=== PATIENT | male | born 1995 | race Caucasian/White ===

== ENCOUNTER 2017-10-08 08:48 | Inpatient (IN) | payer SELFPAY ==
[~2017-10-08] VITALS: Ht 188 cm; Wt 103.2 kg
[2017-10-08] VITALS (17 sets, daily range): BP systolic 113–176; BP diastolic 68–95; PULSE 74–137; RESP 14–28; TEMP 96.5–98.5; O2SAT 97–100
[~2017-10-08 08:48] MED LIST: HYDR-3580 PO
[2017-10-08] MEDS: SODIUM CHLOR 0.9% 1000 ML INJ 1,000 ML IV SCH ×2 (09:27→10:06)
[2017-10-08] MEDS ORDERED: SODIUM CHLOR 0.9% 1000 ML INJ 1,000 ML IV ONE (09:30)
--- NOTE | 2017-10-08 09:31 | RADRPT ---
EXAM DATE: 10/08/2017 9:27 AM EDT AGE/SEX: 22 years / Male INDICATIONS: Short of breath CLINICAL DATA: This is the patient's initial encounter. Patient reports that signs and symptoms have been present for 2 weeks and indicates a pain score of 0/10. MEDICAL/SURGICAL HISTORY: None. None. COMPARISON: No prior exams available for comparison. FINDINGS: A single AP view of the chest demonstrates the lungs to be symmetrically aerated without evidence of mass, infiltrate or effusion. The cardiomediastinal contours are unremarkable. Osseous structures a re intact. CONCLUSION: No acute disease Electronically signed by: Shawn Reyes MD 10/08/2017 9:29 AM EDT
[2017-10-08 09:33] LABS: AUTOMATED NEUTROPHIL # 8.2 TH/MM3 (1.8-7.7); BASOPHIL % 0.3 % (0.0-2.0); EOSINOPHIL % 0.1 % (0.0-4.0); HEMATOCRIT 45.5 % (39.0-51.0); HEMOGLOBIN 15.3 GM/DL (13.0-17.0); LYMPH % 8.3 % (9.0-44.0); LYMPHOCYTE # 0.8 TH/MM3 (1.0-4.8); MEAN CELL VOLUME 79.6 FL (80.0-100.0); MEAN CORPUSCULAR HEMOGLOBIN 26.8 PG (27.0-34.0); MEAN CORPUSCULAR HGB CONC 33.6 % (32.0-36.0); MEAN PLATELET VOLUME 12.3 FL (7.0-11.0); MONO % 6.3 % (0.0-8.0); MONOCYTE # 0.6 TH/MM3 (0-0.9); PLATELET COUNT 163 TH/MM3 (150-450); RED BLOOD COUNT 5.72 MIL/MM3 (4.50-5.90); WHITE BLOOD COUNT 9.6 TH/MM3 (4.0-11.0)
--- NOTE | 2017-10-08 09:36 | PD ---
HPI Chief Complaint: Dizziness Time Seen by Provider: 08:57 Travel History International Travel<30 days: No Contact w/Intl Traveler<30days: No Traveled to known affect area: No History of Present Illness HPI Patient is a 22 year old male who comes in complaining of lightheadedness. He says this has been coming and going for the past two weeks. He says it started with some left sided abdominal pain, which went away, then the dizziness started. He says he was at work today and he got very dizzy and vomited twice, so he came in to the hospital. He denies any headaches, blurred vision, fever or chills. He says this has never happened before. Nothing seems to improve or worsen his symptoms. The dizziness comes on randomly and is not associated with position. He says he thinks he is dehydrated because he is thirsty all the time and has increased how much he is drinking. Severity is mild to moderate. PFSH Past Medical History Medical History: Denies Significant Hx Autoimmune Disease: No Anxiety: No Depression: No Cardiovascular Problems: No Neurologic: No Psychiatric: No Respiratory: No Influenza Vaccination: No Past Surgical History Appendectomy: Yes Other Surgery: No Social History Alcohol Use: Yes (rarely) Tobacco Use: No Substance Use: No Allergies-Medications (Allergen,Severity, Reaction): Coded Allergies: No Known Allergies (Unverified Allergy, Unknown, 10/08/17) Reported Meds & Prescriptions Reported Meds & Active Scripts Active Review of Systems Except as stated in HPI: all other systems reviewed are Neg General / Constitutional: No: Fever, Chills Eyes: No: Blurred Vision HENT: Positive: Lightheadedness, No: Headaches Cardiovascular: No: Chest Pain or Discomfort Respiratory: No: Shortness of Breath Gastrointestinal: Positive: Nausea, Vomiting Musculoskeletal: No: Myalgias, Edema Skin: No Rash, No Change in Pigmentation Neurologic: No: Weakness, Dizziness Endocrine: Positive: Polyuria, Polydipsia Physical Exam Narrative GENERAL: Awake and alert, in no acute distress. Smells of ketones. SKIN: Focused skin assessment warm/dry. No wounds or signs of infection. HEAD: Atraumatic. Normocephalic. EYES: Pupils equal and round. No scleral icterus. EOMI. ENT: Mucous membranes pink and moist. NECK: Trachea midline. No JVD. CARDIOVASCULAR: Regular rate and rhythm. No murmur appreciated. RESPIRATORY: No accessory muscle use. Clear to auscultation. Breath sounds equal bilaterally. GASTROINTESTINAL: Abdomen soft, non-tender, nondistended. MUSCULOSKELETAL: No obvious deformities. No clubbing. No cyanosis. No edema. NEUROLOGICAL: Awake and alert. No obvious cranial nerve deficits. Motor grossly within normal limits. Normal speech. PSYCHIATRIC: Appropriate mood and affect; insight and judgment normal. Data Data Last Documented VS Vital Signs Date Time Temp Pulse Resp B/P (MAP) Pulse Ox O2 Delivery O2 Flow Rate FiO2 10/08/17 10:39 95 18 128/80 (96) 98 Room Air 10/08/17 08:50 97.5 Orders Orders Electrocardiogram (10/08/17 09:06) Troponin I (10/08/17 09:06) Complete Blood Count With Diff (10/08/17 09:06) Beta Hydroxybutyrate (Acetone) (10/08/17 09:06) Sodium Chlor 0.9% 1000 Ml Inj (Ns 1000 M (10/08/17 09:06) Urinalysis - C+S If Indicated (10/08/17 09:06) Chest, Single Ap (10/08/17 ) Blood Gas Venous (Vbg) (10/08/17 09:06) Iv Access Insert/Monitor (10/08/17 09:06) Ecg Monitoring (10/08/17 09:06) Basic Metabolic Panel (Bmp) (10/08/17 09:06) Hepatic Functional Panel (10/08/17 09:06) Sodium Chlor 0.9% 1000 Ml Inj (Ns 1000 M (10/08/17 09:30) Sodium Chlor 0.9% 1000 Ml Inj (Ns 1000 M (10/08/17 10:31) Dext 5%-Nacl 0.9% 1000 Ml Inj (D5w-Ns 10 (10/08/17 10:31) Insulin Human Regular Inj (Novolin R Inj (10/08/17 10:45) Insulin Regular (Iv Infusion) (Novolin R (10/08/17 10:45) Potassium Chlor 40 Meq Premix (Kcl 40 Me (10/08/17 10:45) Potassium Chlor 40 Meq Premix (Kcl 40 Me (10/08/17 10:45) Potassium Chlor 20 Meq Premix (Kcl 20 Me (10/08/17 10:45) Potassium Chlor 20 Meq Premix (Kcl 20 Me (10/08/17 10:45) Potassium Chlor 20 Meq Premix (Kcl 20 Me (10/08/17 10:45) Potassium Chlor 20 Meq Premix (Kcl 20 Me (10/08/17 10:45) Potassium Chlor 20 Meq Premix (Kcl 20 Me (10/08/17 10:45) Potassium Chlor 20 Meq Premix (Kcl 20 Me (10/08/17 10:45) Sodium Bicarbonate 8.4% Inj (Sodium Bica (10/08/17 10:45) Sodium Bicarbonate 8.4% Inj (Sodium Bica (10/08/17 10:45) Sodium Phosphate Inj (Sodium Phosphate I (10/08/17 10:45) Sodium Chlor 0.9% 1000 Ml Inj (Ns 1000 M (10/08/17 10:39) Dext 5%-Nacl 0.9% 1000 Ml Inj (D5w-Ns 10 (10/08/17 10:39) Insulin Human Regular Inj (Novolin R Inj (10/08/17 10:45) Insulin Regular (Iv Infusion) (Novolin R (10/08/17 10:45) Potassium Chlor 40 Meq Premix (Kcl 40 Me (10/08/17 10:45) Potassium Chlor 40 Meq Premix (Kcl 40 Me (10/08/17 10:45) Potassium Chlor 20 Meq Premix (Kcl 20 Me (10/08/17 10:45) Potassium Chlor 20 Meq Premix (Kcl 20 Me (10/08/17 10:45) Potassium Chlor 20 Meq Premix (Kcl 20 Me (10/08/17 10:45) Potassium Chlor 20 Meq Premix (Kcl 20 Me (10/08/17 10:45) Potassium Chlor 20 Meq Premix (Kcl 20 Me (10/08/17 10:45) Potassium Chlor 20 Meq Premix (Kcl 20 Me (10/08/17 10:45) Sodium Bicarbonate 8.4% Inj (Sodium Bica (10/08/17 10:45) Sodium Bicarbonate 8.4% Inj (Sodium Bica (10/08/17 10:45) Sodium Phosphate Inj (Sodium Phosphate I (10/08/17 10:45) Basic Metabolic Panel (Bmp) (10/08/17 15:39) Basic Metabolic Panel (Bmp) (10/08/17 21:39) Basic Metabolic Panel (Bmp) (10/09/17 03:39) Basic Metabolic Panel (Bmp) (10/09/17 09:39) Magnesium (Mg) (10/08/17 15:39) Magnesium (Mg) (10/08/17 21:39) Magnesium (Mg) (10/09/17 03:39) Magnesium (Mg) (10/09/17 09:39) Phosphorus (Po4) (10/08/17 15:39) Phosphorus (Po4) (10/08/17 21:39) Phosphorus (Po4) (10/09/17 03:39) Phosphorus (Po4) (10/09/17 09:39) Beta Hydroxybutyrate (Acetone) (10/08/17 21:39) Beta Hydroxybutyrate (Acetone) (10/09/17 09:39) Admit Order (Ed Use Only) (10/08/17 ) Labs Laboratory Tests Test 10/08/17 09:15 10/08/17 09:20 White Blood Count 9.6 TH/MM3 Red Blood Count 5.72 MIL/MM3 Hemoglobin 15.3 GM/DL Hematocrit 45.5 % Mean Corpuscular Volume 79.6 FL Mean Corpuscular Hemoglobin 26.8 PG Mean Corpuscular Hemoglobin Concent 33.6 % Red Cell Distribution Width 13.0 % Platelet Count 163 TH/MM3 Mean Platelet Volume 12.3 FL Neutrophils (%) (Auto) 85.0 % Lymphocytes (%) (Auto) 8.3 % Monocytes (%) (Auto) 6.3 % Eosinophils (%) (Auto) 0.1 % Basophils (%) (Auto) 0.3 % Neutrophils # (Auto) 8.2 TH/MM3 Lymphocytes # (Auto) 0.8 TH/MM3 Monocytes # (Auto) 0.6 TH/MM3 Eosinophils # (Auto) 0.0 TH/MM3 Basophils # (Auto) 0.0 TH/MM3 CBC Comment DIFF FINAL Differential Comment Blood Urea Nitrogen 12 MG/DL Creatinine 1.00 MG/DL Random Glucose 636 MG/DL Total Protein 8.1 GM/DL Albumin 3.8 GM/DL Calcium Level 9.2 MG/DL Alkaline Phosphatase 184 U/L Aspartate Amino Transf (AST/SGOT) 10 U/L Alanine Aminotransferase (ALT/SGPT) 26 U/L Total Bilirubin 1.1 MG/DL Direct Bilirubin 0.2 MG/DL Sodium Level 126 MEQ/L Potassium Level 4.0 MEQ/L Chloride Level 94 MEQ/L Carbon Dioxide Level 11.1 MEQ/L Anion Gap 21 MEQ/L Estimat Glomerular Filtration Rate 94 ML/MIN Indirect Bilirubin 0.9 MG/DL Troponin I LESS THAN 0.02 NG/ML B-Hydroxybutyrate 7.35 MMOL/L Urine Color YELLOW Urine Turbidity CLEAR Urine pH 5.0 Urine Specific [place] 1.010 Urine Protein NEG mg/dL Urine Glucose (UA) 1000 OR GREATER mg/dL Urine Ketones 80 OR GREATER mg/dL Urine Occult Blood NEG Urine Nitrite NEG Urine Bilirubin NEG Urine Urobilinogen 0.2 MG/DL Urine Leukocyte Esterase NEG Urine WBC 0-2 /hpf Microscopic Urinalysis Comment CULT NOT INDICATED Blood Gas Puncture Site AC Blood Gas Patient Temperature 98.6 Venous Blood pH 7.30 Venous Blood Partial Pressure CO2 22 mmHg Venous Blood Partial Pressure O2 52 mmHg Venous Blood HCO3 10 mmol/L Venous Blood Oxygen Saturation 83 % Venous Blood Oxygen Content 17.4 Vol % Venous Blood Base Excess -15.0 mmol/L Oxygen Delivery Device ROOM AIR Blood Gas Inspired Oxygen 21 % MDM Medical Decision Making Medical Screen Exam Complete: Yes Emergency Medical Condition: Yes Medical Record Reviewed: Yes Interpretation(s) ECG shows sinus tachycardia at 111 Differential Diagnosis Dehydration vs DKA vs new onset diabetes vs electrolyte abnormalities Narrative Course Patient is a 22 year old male who comes in complaining of dizziness. Smell of ketones is in the room. IV established, labs sent. Labs show an anion gap of 21 , pH of 7.30, glucose of 636. Given IVF, IVP insulin and started on an insulin drip. Patient informed of the results. Admitted for further management. Diagnosis Primary Impression: Diabetic ketoacidosis Qualified Codes: E13.10 - Other specified diabetes mellitus with ketoacidosis without coma Admitting Information Admitting Physician Requests: Admit Scripts Parenteral Therapy Supplies (Sharpsafety Sharps Contai) 1 Mis Mis EA .XX DIRECTED, #1 0 Refills Prov: Obinna Esquivel 10/10/17 Glucocom Test Strips (Glucocom Test Strips) 1 Elsi Elsi EA .XX DIRECTED for Blood Sugar Management, #1 Prov: Obinna Esquivel 10/10/17 Lancets (Lancets) 1 Mis Mis EA .XX DIRECTED for Blood Sugar Management, #1 0 Refills Prov: Obinna Esquivel 10/10/17 Insulin Syringe/U-100/31G X 5/16" 1 ml (Insulin Syringe/U-100/31G X 5/16" 1 ml) 31 Gauge X 5/16" Mis EA .XX DIRECTED for Blood Sugar Management, #1 0 Refills Prov: Obinna Esquivel 10/10/17 Blood Glucose Monitoring W/Device (Glucocom Blood Glucose Mo W/Device) 1 Kit Kit KIT .XX DIRECTED for Blood Sugar Management, #1 Prov: Obinna Esquivel 10/10/17 Insulin Detemir Inj (Levemir Inj) 1,000 unit/ 10 ML Vial 10 UNITS SQ BID for Blood Sugar Management for 30 Days, INJECTION Do not mix with any other Insulin. Prov: Obinna Esquivel 10/10/17 Insulin Aspart Inj (Novolog Inj) 100 Unit/Ml Inj 1 UNITS SQ ACHS SLIDING SCALE for Blood Sugar Management, #1 BOTTLE Prov: Obinna Esquivel 10/10/17 Aurelia Yun MD Oct 08, 2017 09:36
[2017-10-08 09:44] LABS: BILIRUBIN, URINE NEG (NEG); BLOOD, URINE NEG (NEG); GLUCOSE,URINE 1000 OR GREATER mg/dL (NEG); KETONE, URINE 80 OR GREATER mg/dL (NEG); NITRITE,URINE NEG (NEG); URINE COLOR YELLOW (YELLW/STRAW); URINE LEUKOCYTE ESTERASE NEG (NEG)
[2017-10-08 09:56] LABS: WBC, URINE 0-2 /hpf (0-5)
[2017-10-08 09:59] LABS: CALCIUM 9.2 MG/DL (8.5-10.1)
[2017-10-08 10:00] LABS: ALBUMIN 3.8 GM/DL (3.4-5.0); BICARBONATE 11.1 MEQ/L (21.0-32.0)
[2017-10-08 10:03] LABS: ALT (GPT) 26 U/L (12-78); AST (GOT) 10 U/L (15-37); CHLORIDE 94 MEQ/L (98-107); DIRECT BILIRUBIN ADULT 0.2 MG/DL (0.0-0.2); GLOMERULAR FILTRATION RATE 94 ML/MIN (>89); SODIUM (NA) 126 MEQ/L (136-145)
[2017-10-08 10:04] LABS: INDIRECT BILIRUBIN 0.9 MG/DL (0.0-0.8); TOTAL BILIRUBIN ADULT 1.1 MG/DL (0.2-1.0); TOTAL PROTEIN 8.1 GM/DL (6.4-8.2)
[2017-10-08 10:05] LABS: ALKALINE PHOSPHATASE 184 U/L (45-117)
[2017-10-08 10:15] LABS: BLOOD UREA NITROGEN 12 MG/DL (7-18); TROPONIN I LESS THAN 0.02 NG/ML (0.02-0.05)
[2017-10-08 10:31] LABS: GLUCOSE,RANDOM 636 MG/DL (74-106)
[2017-10-08] MEDS ORDERED: DEXT 5%-NACL 0.9% 1000 ML INJ 1,000 ML IV SCH (10:31)
[2017-10-08] MEDS ORDERED: SODIUM CHLOR 0.9% 1000 ML INJ 1,000 ML IV SCH ×2 (10:31→10:39)
[2017-10-08] MEDS ORDERED: POTASSIUM CHLOR 40 MEQ PREMIX 100 ML IV PRN ×4 (10:45)
[2017-10-08] MEDS ORDERED: INSULIN HUMAN REGULAR 1,000 UNITS/10 ML VIAL IV PUSH ONE ×2 (10:45)
[2017-10-08] MEDS ORDERED: POTASSIUM CHLOR 20 MEQ PREMIX 100 ML IV PRN ×11 (10:45)
[2017-10-08] MEDS ORDERED: INSULIN REGULAR (IV INFUSION) 100 UNITS in SODIUM CHLORIDE 0.9% INJ 99 ML IV PRN ×4 (10:45)
[2017-10-08] MEDS ORDERED: SODIUM BICARBONATE 8.4% SOLN 50 MEQ/50 ML VIAL IV PUSH PRN ×4 (10:45)
[2017-10-08] MEDS ORDERED: SODIUM PHOSPHATE INJ 15 MMOL in SODIUM CHLORIDE 0.9% INJ 100 ML IV PRN ×4 (10:45)
[2017-10-08] MEDS ORDERED: SODIUM CHLORIDE 0.9% FLUSH 10 ML FLUSH IV FLUSH PRN (11:15)
[2017-10-08] MEDS ORDERED: NALOXONE HCL 0.4 MG/ML AMP IV PUSH PRN (11:15)
[2017-10-08] MEDS ORDERED: ACETAMINOPHEN 325 MG TAB PO PRN (11:15)
[2017-10-08] MEDS ORDERED: LACTULOSE SYRUP 20 GM/30 ML CUP PO PRN (11:15)
[2017-10-08] MEDS ORDERED: MAGNESIUM HYDROXIDE SUSP 30 ML CUP PO PRN (11:15)
[2017-10-08] MEDS ORDERED: SENNOSIDES 8.6 MG TAB PO PRN (11:15)
[2017-10-08] MEDS ORDERED: BISACODYL 10 MG SUPP RECTAL PRN (11:15)
[2017-10-08] MEDS: POTASSIUM CHLOR 20 MEQ PREMIX 100 ML IV PRN ×2 (11:32→13:15)
--- NOTE | 2017-10-08 12:27 | EKG ---
Date Performed: 10/08/2017 Time Performed: 09:17:48 PTAGE: 22 years EKG: SINUS TACHYCARDIA EARLY REPOLARIZATION ABNORMAL RHYTHM ECG NO PREVIOUS TRACING DOCTOR: Jed Wynn Interpretating Date/Time 10/08/2017 12:25:42
[2017-10-08] MEDS: DEXT 5%-NACL 0.9% 1000 ML INJ 1,000 ML IV SCH ×2 (13:11→15:39)
[2017-10-08] MEDS: ENOXAPARIN SODIUM 40 MG/0.4 ML SYRINGE SQ SCH (13:14)
--- NOTE | 2017-10-08 14:23 | HHI.HP ---
HPI Service [facility] Primary Care Physician No Primary Care Physician Admission Diagnosis DKA Diagnoses: (1) Diabetic ketoacidosis Diagnosis: Principal (2) Diabetes mellitus, new onset Diagnosis: Principal Chief Complaint: Dizziness Travel History International Travel<30 Days: No Contact w/Intl Traveler <30 Da: No Traveled to Known Affected Are: No History of Present Illness 22-year-old male with no chronic medical illnesses who presented to the ER today because of acute onset of dizziness. Patient states that he was in normal state of health and at approximately 730 this morning he woke up with some lightheadedness and dizziness. He was doing okay but then all of a sudden the dizziness became more severe so he came to emergency department for evaluation. Patient had workup done to find that he was in diabetic ketoacidosis with glucose 636, anion gap 21, pH 7.3 base excess of -15. Emergency room physician requested the patient be admitted for further evaluation and management. Upon further evaluation of the patient he denies any other symptomatology to include polydipsia, polyphagia, polyuria. He denies any weight changes or change in appetite. Review of Systems Constitutional: COMPLAINS OF: Dizziness Except as stated in HPI: all other systems reviewed are Neg Past Family Social History Past Medical History No chronic medical illnesses Past Surgical History Appendectomy Reported Medications No home medication Allergies: Coded Allergies: No Known Allergies (Unverified Allergy, Unknown, 10/08/17) Family History Family history reviewed and unremarkable for any heart disease, diabetes, cancer , seizure, stroke Social History Patient denies any tobacco, alcohol or illicit drug Physical Exam Vital Signs Vital Signs Date Time Temp Pulse Resp B/P (MAP) Pulse Ox O2 Delivery O2 Flow Rate FiO2 10/08/17 12:10 10/08/17 12:00 98.5 111 18 131/80 (97) 98 10/08/17 11:56 94 18 130/81 (97) 98 Room Air 10/08/17 10:39 95 18 128/80 (96) 98 Room Air 10/08/17 09:30 104 18 155/88 (110) 97 Room Air 10/08/17 08:59 100 Room Air 10/08/17 08:50 97.5 117 16 176/95 (122) 99 Physical Exam GENERAL: Well-developed, well-nourished, in no acute distress. alert and orientated HEENT: Head is normocephalic without any lesions or masses noted. Facial features are symmetric. Eyes: Pupils equal round reactive to light. Extraocular muscles are intact. Conjunctivae were clear. Oropharyngeal: Pharynx without any erythema edema. Tongue is midline without deviation. Buccal mucosa is moist without any masses or lesions NECK: Supple without any masses. Trachea midline no deviation. No JVD, no bruits are appreciated CARDIAC: Regular rhythm, regular rate. S1/S2 are heard. No murmurs gallops or rubs. LUNGS: Clear to auscultation bilaterally. No wheeze, rhonchi or rales. No use of accessory muscles on inspiration or expiration. ABDOMEN: Soft, nontender. Nondistended. Bowel sounds heard in all 4 quadrants. No organomegaly or masses. Negative rebound, negative guarding EXTREMITIES: No edema, pulses are equal bilaterally. No cyanosis or clubbing NEUROLOGY: Mood and affect appear appropriate. Cranial nerves II through XII grossly intact. Muscle strength 5/5 in upper and lower extremities bilaterally. Deep tendon reflexes are 2+ in upper and lower extremities bilaterally. Laboratory Laboratory Tests Test 10/08/17 09:15 10/08/17 09:20 White Blood Count 9.6 Red Blood Count 5.72 Hemoglobin 15.3 Hematocrit 45.5 Mean Corpuscular Volume 79.6 Mean Corpuscular Hemoglobin 26.8 Mean Corpuscular Hemoglobin Concent 33.6 Red Cell Distribution Width 13.0 Platelet Count 163 Mean Platelet Volume 12.3 Neutrophils (%) (Auto) 85.0 Lymphocytes (%) (Auto) 8.3 Monocytes (%) (Auto) 6.3 Eosinophils (%) (Auto) 0.1 Basophils (%) (Auto) 0.3 Neutrophils # (Auto) 8.2 Lymphocytes # (Auto) 0.8 Monocytes # (Auto) 0.6 Eosinophils # (Auto) 0.0 Basophils # (Auto) 0.0 CBC Comment DIFF FINAL Differential Comment Blood Urea Nitrogen 12 Creatinine 1.00 Random Glucose 636 Total Protein 8.1 Albumin 3.8 Calcium Level 9.2 Alkaline Phosphatase 184 Aspartate Amino Transf (AST/SGOT) 10 Alanine Aminotransferase (ALT/SGPT) 26 Total Bilirubin 1.1 Direct Bilirubin 0.2 Sodium Level 126 Potassium Level 4.0 Chloride Level 94 Carbon Dioxide Level 11.1 Anion Gap 21 Estimat Glomerular Filtration Rate 94 Indirect Bilirubin 0.9 Troponin I LESS THAN 0.02 B-Hydroxybutyrate 7.35 Urine Color YELLOW Urine Turbidity CLEAR Urine pH 5.0 Urine Specific [place] 1.010 Urine Protein NEG Urine Glucose (UA) 1000 OR GREATER Urine Ketones 80 OR GREATER Urine Occult Blood NEG Urine Nitrite NEG Urine Bilirubin NEG Urine Urobilinogen 0.2 Urine Leukocyte Esterase NEG Urine WBC 0-2 Microscopic Urinalysis Comment CULT NOT INDICATED Blood Gas Puncture Site AC Blood Gas Patient Temperature 98.6 Venous Blood pH 7.30 Venous Blood Partial Pressure CO2 22 Venous Blood Partial Pressure O2 52 Venous Blood HCO3 10 Venous Blood Oxygen Saturation 83 Venous Blood Oxygen Content 17.4 Venous Blood Base Excess -15.0 Oxygen Delivery Device ROOM AIR Blood Gas Inspired Oxygen 21 Result Diagram: 10/08/17 0915 10/08/17 0915 Imaging Last Impressions Chest X-Ray 10/08/17 0000 Signed Impressions: CONCLUSION: No acute disease Caprini VTE Risk Assessment Caprini VTE Risk Assessment: No/Low Risk (score <= 1) Caprini Risk Assessment Model Point Value = 1 Point Value = 2 Point Value = 3 Point Value = 5 Age 41-60 Minor surgery BMI > 25 kg/m2 Swollen legs Varicose veins or History of unexplained or recurrent spontaneous Oral contraceptives or hormone replacement Sepsis (< 1 month) Serious lung disease, including pneumonia (< 1 month) Abnormal pulmonary function Acute myocardial infarction Congestive heart failure (< 1 month) History of inflammatory bowel disease Medical patient at bed rest Age 61-74 Arthroscopic surgery Major open surgery (> 45 min) Laparoscopic surgery (> 45 min) Malignancy Confined to bed (> 72 hours) Immobilizing plaster cast Central venous access Age >= 75 History of VTE Family history of VTE Factor V Leiden Prothrombin [id number] Lupus anticoagulant Anticardiolipin antibodies Elevated serum homocysteine Heparin-induced thrombocytopenia Other congenital or acquired thrombophilia Stroke (< 1 month) Elective arthroplasty Hip, pelvis, or leg fracture Acute spinal cord injury (< 1 month) Prophylaxis Regimen Total Risk Factor Score Risk Level Prophylaxis Regimen 0-1 Low Early ambulation 2 Moderate Order ONE of the following: *Sequential Compression Device (SCD) *Heparin 5000 units SQ BID 3-4 Higher Order ONE of the following medications: *Heparin 5000 units SQ TID *Enoxaparin/Lovenox 40 mg SQ daily (WT < 150 kg, CrCl > 30 mL/min) *Enoxaparin/Lovenox 30 mg SQ daily (WT < 150 kg, CrCl > 10-29 mL/min) *Enoxaparin/Lovenox 30 mg SQ BID (WT < 150 kg, CrCl > 30 mL/min) AND/OR *Sequential Compression Device (SCD) 5 or more Highest Order ONE of the following medications: *Heparin 5000 units SQ TID (Preferred with Epidurals) *Enoxaparin/Lovenox 40 mg SQ daily (WT < 150 kg, CrCl > 30 mL/min) *Enoxaparin/Lovenox 30 mg SQ daily (WT < 150 kg, CrCl > 10-29 mL/min) *Enoxaparin/Lovenox 30 mg SQ BID (WT < 150 kg, CrCl > 30 mL/min) AND *Sequential Compression Device (SCD) Assessment and Plan Assessment and Plan New onset diabetes with diabetic ketoacidosis -Patient will be admitted to ICU with IV insulin protocol -Replace electrolyte per protocol -Consult environmental educator, dietary for diabetic education -Diabetic diet DVT prevention -Subcutaneous Lovenox Code Status Full code Physician Certification 2 Midnight Certification Type: Admission for Inpatient Services Order for Inpatient Services The services are ordered in accordance with Medicare regulations or non- Medicare payer requirements, as applicable. In the case of services not specified as inpatient-only, they are appropriately provided as inpatient services in accordance with the 2-midnight benchmark. Estimated LOS (days): 3 days is the estimated time the patient will need to remain in the hospital, assuming treatment plan goals are met and no additional complications. Post-Hospital Plan: Not yet determined Obinna Esquivel Oct 08, 2017 14:23
[2017-10-08] MEDS ORDERED: CHLORHEXIDINE GLUCONATE 2 % 1 PACK (2 CLOTHS)(extra cloths) TOPICAL PRN (14:30)
[2017-10-08 16:33] LABS: BICARBONATE 19.7 MEQ/L (21.0-32.0); CALCIUM 8.1 MG/DL (8.5-10.1); CREATININE 0.68 MG/DL (0.60-1.30); MAGNESIUM 1.9 MG/DL (1.5-2.5); PHOSPHORUS 2.3 MG/DL (2.5-4.9)
[2017-10-08] MEDS ORDERED: DC previous DKA orders (HMC 1917) ONE (18:45)
[2017-10-08] MEDS ORDERED: DC Insulin drip 2 hrs post basal insulin dose ONE (18:45)
[2017-10-08] MEDS ORDERED: GLUCAGON 1 MG/ML VIAL OTHER PRN (18:45)
[2017-10-08] MEDS ORDERED: DEXTROSE 50% IN WATER 50 ML VIAL(D50) IV PUSH PRN (18:45)
[2017-10-08] MEDS: INSULIN ASPART SUPPLEMENTAL SCALE SQ SCH (19:21)
[2017-10-08] MEDS: INSULIN DETEMIR 100 UNITS/ML VIAL SQ SCH (19:21)
[2017-10-08] MEDS: SODIUM CHLORIDE 0.9% FLUSH 10 ML FLUSH IV FLUSH SCH (20:48)
[2017-10-08 22:34] LABS: CALCIUM 8.5 MG/DL (8.5-10.1)
[2017-10-08 22:35] LABS: BICARBONATE 20.9 MEQ/L (21.0-32.0); MAGNESIUM 1.8 MG/DL (1.5-2.5)
[2017-10-08 22:38] LABS: CREATININE 0.66 MG/DL (0.60-1.30); PHOSPHORUS 2.5 MG/DL (2.5-4.9)
[2017-10-09] VITALS (22 sets, daily range): BP systolic 101–125; BP diastolic 58–76; PULSE 64–86; RESP 6–25; TEMP 97.6–97.8; O2SAT 96–100
[2017-10-09] MEDS: CHLORHEXIDINE GLUCONATE 2 % 1 PACK (2 CLOTHS)(taper/protocol) TOPICAL SCH (03:40)
[2017-10-09 05:58] LABS: AUTOMATED NEUTROPHIL # 3.1 TH/MM3 (1.8-7.7); BASOPHIL # 0.1 TH/MM3 (0-0.2); BASOPHIL % 1.3 % (0.0-2.0); EOSINOPHIL # 0.1 TH/MM3 (0-0.4); EOSINOPHIL % 1.9 % (0.0-4.0); HEMATOCRIT 41.2 % (39.0-51.0); HEMOGLOBIN 13.5 GM/DL (13.0-17.0); LYMPHOCYTE # 1.9 TH/MM3 (1.0-4.8); MEAN CELL VOLUME 79.7 FL (80.0-100.0); MEAN CORPUSCULAR HEMOGLOBIN 26.1 PG (27.0-34.0); MEAN CORPUSCULAR HGB CONC 32.7 % (32.0-36.0); MEAN PLATELET VOLUME 11.1 FL (7.0-11.0); MONO % 11.4 % (0.0-8.0); MONOCYTE # 0.7 TH/MM3 (0-0.9); NEUT % 53.4 % (16.0-70.0); PLATELET COUNT 143 TH/MM3 (150-450); RED BLOOD COUNT 5.17 MIL/MM3 (4.50-5.90); RED CELL DISTRIBUTION WIDTH 13.1 % (11.6-17.2); WHITE BLOOD COUNT 5.9 TH/MM3 (4.0-11.0)
[2017-10-09 06:11] LABS: BICARBONATE 19.1 MEQ/L (21.0-32.0); CALCIUM 8.3 MG/DL (8.5-10.1); MAGNESIUM 1.9 MG/DL (1.5-2.5)
[2017-10-09 06:15] LABS: CREATININE 0.53 MG/DL (0.60-1.30)
[2017-10-09 06:22] LABS: PHOSPHORUS 3.9 MG/DL (2.5-4.9)
[2017-10-09] MEDS: INSULIN ASPART SUPPLEMENTAL SCALE SQ SCH ×4 (08:16→21:02)
[2017-10-09] MEDS: INSULIN DETEMIR 100 UNITS/ML VIAL SQ SCH ×2 (08:16→21:02)
[2017-10-09] MEDS: SODIUM CHLORIDE 0.9% FLUSH 10 ML FLUSH IV FLUSH SCH ×2 (08:16→21:00)
[2017-10-09 09:48] LABS: CALCIUM 8.2 MG/DL (8.5-10.1)
[2017-10-09 10:12] LABS: BICARBONATE 18.5 MEQ/L (21.0-32.0); CREATININE 0.6 MG/DL (0.60-1.30); MAGNESIUM 1.7 MG/DL (1.5-2.5); PHOSPHORUS 3.2 MG/DL (2.5-4.9)
--- NOTE | 2017-10-09 11:23 | HHI.PR ---
Subjective Remarks Patient seen and examined today for follow-up on new onset diabetes. Patient had been weaned off insulin IV yesterday evening. He is now on subcutaneous insulin. Patient denies any complaints. Vital signs remained stable. Patient afebrile Objective Vitals Vital Signs Date Time Temp Pulse Resp B/P (MAP) Pulse Ox O2 Delivery O2 Flow Rate FiO2 10/09/17 10:00 74 10/09/17 09:00 76 13 120/73 (89) 10/09/17 08:00 97.8 74 17 122/69 (86) 97 10/09/17 08:00 74 10/09/17 07:00 78 16 103/67 (79) 10/09/17 06:03 75 10/09/17 04:40 70 10/09/17 03:19 97.8 74 15 118/69 (85) 100 10/09/17 02:00 71 10/09/17 00:00 84 10/08/17 23:50 96.5 76 14 118/69 (85) 100 10/08/17 23:00 74 28 118/69 (85) 10/08/17 22:00 90 10/08/17 21:00 88 21 127/68 (87) 10/08/17 20:14 97.8 86 19 113/68 (83) 100 10/08/17 20:00 94 10/08/17 19:00 137 10/08/17 19:00 94 10/08/17 19:00 94 18 115/69 (84) 97 10/08/17 18:00 92 10/08/17 16:00 92 10/08/17 16:00 92 17 133/77 (95) 10/08/17 15:47 92 10/08/17 15:47 92 17 134/78 (96) 10/08/17 15:00 92 10/08/17 14:00 96 10/08/17 12:10 10/08/17 12:00 98.5 111 18 131/80 (97) 98 10/08/17 11:56 94 18 130/81 (97) 98 Room Air I/O 10/08/17 10/08/17 10/08/17 10/09/17 10/09/17 10/09/17 07:00 15:00 23:00 07:00 15:00 23:00 Intake Total 2000 ml 750 ml Output Total 900 ml Balance 2000 ml -150 ml Intake Oral 750 ml IV Total 2000 ml Output Urine Total 900 ml # Voids 8 Result Diagram: 10/09/17 0538 10/09/17 0922 Objective Remarks GENERAL: Well-developed, well-nourished, in no acute distress. alert and orientated HEENT: Head is normocephalic without any lesions or masses noted. Facial features are symmetric. Eyes: Extraocular muscles are intact. Conjunctivae were clear. NECK: Supple without any masses. Trachea midline no deviation. No JVD, CARDIAC: Regular rhythm, regular rate. S1/S2 are heard. No murmurs gallops or rubs. LUNGS: Clear to auscultation bilaterally. No wheeze, rhonchi or rales. No use of accessory muscles on inspiration or expiration. ABDOMEN: Soft, nontender. Nondistended. Bowel sounds heard in all 4 quadrants. No organomegaly or masses. Negative rebound, negative guarding EXTREMITIES: No edema, pulses are equal bilaterally. No cyanosis or clubbing NEUROLOGY: Mood and affect appear appropriate. Cranial nerves II through XII grossly intact. Moving all extremities, speech is clear Urinary Catheter: No Vascular Central Line Catheter: No A/P Assessment and Plan New onset diabetes with diabetic ketoacidosis -Patient was admitted to ICU with IV insulin protocol, insulin IV has been discontinued -Levemir 10 units daily -Medium dose sliding scale insulin -Replace electrolyte per protocol -Awaiting consult for coding educator and dietary -Awaiting hemoglobin A1c -Diabetic diet DVT prevention -Subcutaneous Lovedavex Obinna Esquivel Oct 09, 2017 11:23
[2017-10-09 11:28] LABS: HEMOGLOBIN A1C 12.9 % (4.3-6.0)
[2017-10-09] MEDS: ENOXAPARIN SODIUM 40 MG/0.4 ML SYRINGE SQ SCH (12:36)
[2017-10-10] VITALS (14 sets, daily range): BP systolic 101–131; BP diastolic 61–85; PULSE 62–82; RESP 13–22; TEMP 97.8; O2SAT 98
[2017-10-10] MEDS: CHLORHEXIDINE GLUCONATE 2 % 1 PACK (2 CLOTHS)(taper/protocol) TOPICAL SCH (02:48)
[2017-10-10 05:52] LABS: CALCIUM 8.6 MG/DL (8.5-10.1)
[2017-10-10 05:53] LABS: BICARBONATE 24.2 MEQ/L (21.0-32.0)
[2017-10-10 05:59] LABS: CREATININE 0.51 MG/DL (0.60-1.30)
[2017-10-10] MEDS ORDERED: GLUCKIT15 (07:39)
[2017-10-10] MEDS ORDERED: LEVEMIR SQ (07:39)
[2017-10-10] MEDS ORDERED: BIOM30MI (07:39)
[2017-10-10] MEDS ORDERED: NOVOLOGSS SQ (07:39)
[2017-10-10] MEDS ORDERED: INSU1MIS15 (07:39)
[2017-10-10] MEDS ORDERED: GLUCTES12 (07:39)
[2017-10-10] MEDS ORDERED: LANCETS1 MI1 (07:39)
--- NOTE | 2017-10-10 07:39 | HHI.DCPOC ---
Discharge Care Plan Diagnosis: (1) Diabetes mellitus, new onset (2) Diabetic ketoacidosis Goals to Promote Your Health * To prevent worsening of your condition and complications * To maintain your health at the optimal level Directions to Meet Your Goals Take your medications as prescribed Follow your dietary instruction Follow activity as directed Keep your appointments as scheduled Take your immunizations and boosters as scheduled If your symptoms worsen call your PCP, if no PCP go to Urgent Care Center or Emergency Room Smoking is Dangerous to Your Health. Avoid second hand smoke Call the 24-hour hour crisis hotline for domestic abuse at Obinna Esquivel Oct 10, 2017 07:39
[2017-10-10] MEDS ORDERED: POTASSIUM CHLORIDE 20 MEQ CONTROLLED RELEASE TAB PO ONE (08:00)
[2017-10-10] MEDS: INSULIN ASPART SUPPLEMENTAL SCALE SQ SCH ×2 (08:27→13:22)
[2017-10-10] MEDS: SODIUM CHLORIDE 0.9% FLUSH 10 ML FLUSH IV FLUSH SCH (08:28)
[2017-10-10] MEDS: INSULIN DETEMIR 100 UNITS/ML VIAL SQ SCH (08:40)
--- NOTE | 2017-10-10 11:00 | HHI.DS ---
Discharge Summary Admission Date Oct 08, 2017 at 11:06 Discharge Date: Oct 10, 2017 Admitting Diagnosis DKA (1) Diabetic ketoacidosis ICD Code: E13.10 - Other specified diabetes mellitus with ketoacidosis without coma Diagnosis: Principal (2) Diabetes mellitus, new onset ICD Code: E11.9 - Type 2 diabetes mellitus without complications Diagnosis: Principal Procedures None Brief History - From Admission 22-year-old male with no chronic medical illnesses who presented to the ER today because of acute onset of dizziness. Patient states that he was in normal state of health and at approximately 730 this morning he woke up with some lightheadedness and dizziness. He was doing okay but then all of a sudden the dizziness became more severe so he came to emergency department for evaluation. Patient had workup done to find that he was in diabetic ketoacidosis with glucose 636, anion gap 21, pH 7.3 base excess of -15. Emergency room physician requested the patient be admitted for further evaluation and management. Upon further evaluation of the patient he denies any other symptomatology to include polydipsia, polyphagia, polyuria. He denies any weight changes or change in appetite. CBC/BMP: 10/09/17 0538 10/10/17 0536 Significant Findings Laboratory Tests Test 10/08/17 09:15 10/08/17 09:20 10/08/17 13:15 10/08/17 16:00 Mean Corpuscular Volume 79.6 FL (80.0-100.0) Mean Corpuscular Hemoglobin 26.8 PG (27.0-34.0) Mean Platelet Volume 12.3 FL (7.0-11.0) Neutrophils (%) (Auto) 85.0 % (16.0-70.0) Lymphocytes (%) (Auto) 8.3 % (9.0-44.0) Neutrophils # (Auto) 8.2 TH/MM3 (1.8-7.7) Lymphocytes # (Auto) 0.8 TH/MM3 (1.0-4.8) Random Glucose 636 MG/DL (74-106) 158 MG/DL (74-106) Alkaline Phosphatase 184 U/L (45-117) Aspartate Amino Transf (AST/SGOT) 10 U/L (15-37) Total Bilirubin 1.1 MG/DL (0.2-1.0) Sodium Level 126 MEQ/L (136-145) Chloride Level 94 MEQ/L (98-107) 110 MEQ/L (98-107) Carbon Dioxide Level 11.1 MEQ/L (21.0-32.0) 19.7 MEQ/L (21.0-32.0) Anion Gap 21 MEQ/L (5-15) Indirect Bilirubin 0.9 MG/DL (0.0-0.8) Troponin I LESS THAN 0.02 NG/ML B-Hydroxybutyrate 7.35 MMOL/L (0.00-0.39) Urine Glucose (UA) 1000 OR GREATER mg/dL Urine Ketones 80 OR GREATER mg/dL (NEG) Venous Blood pH 7.30 (7.360-7.400) Venous Blood Partial Pressure CO2 22 mmHg (44-48) Venous Blood Partial Pressure O2 52 mmHg (35-40) Venous Blood HCO3 10 mmol/L (22-26) Venous Blood Oxygen Saturation 83 % (70-76) Venous Blood Oxygen Content 17.4 Vol % (9.0-17.0) Venous Blood Base Excess -15.0 mmol/L (-2-2) Calcium Level 8.1 MG/DL (8.5-10.1) Phosphorus Level 2.3 MG/DL (2.5-4.9) Hemoglobin A1c 12.9 % (4.3-6.0) Test 10/08/17 22:02 10/09/17 05:38 10/09/17 09:22 10/10/17 05:36 Random Glucose 151 MG/DL (74-106) 228 MG/DL (74-106) 350 MG/DL (74-106) 208 MG/DL (74-106) Potassium Level 3.3 MEQ/L (3.5-5.1) 3.3 MEQ/L (3.5-5.1) 3.4 MEQ/L (3.5-5.1) Chloride Level 109 MEQ/L (98-107) Carbon Dioxide Level 20.9 MEQ/L (21.0-32.0) 19.1 MEQ/L (21.0-32.0) 18.5 MEQ/L (21.0-32.0) B-Hydroxybutyrate 0.72 MMOL/L (0.00-0.39) 2.67 MMOL/L (0.00-0.39) Mean Corpuscular Volume 79.7 FL (80.0-100.0) Mean Corpuscular Hemoglobin 26.1 PG (27.0-34.0) Platelet Count 143 TH/MM3 (150-450) Mean Platelet Volume 11.1 FL (7.0-11.0) Monocytes (%) (Auto) 11.4 % (0.0-8.0) Creatinine 0.53 MG/DL (0.60-1.30) 0.51 MG/DL (0.60-1.30) Calcium Level 8.3 MG/DL (8.5-10.1) 8.2 MG/DL (8.5-10.1) Imaging Last Impressions Chest X-Ray 10/08/17 0000 Signed Impressions: CONCLUSION: No acute disease PE at Discharge GENERAL: Well-developed, well-nourished, in no acute distress. alert and orientated HEENT: Head is normocephalic without any lesions or masses noted. Facial features are symmetric. Eyes: Extraocular muscles are intact. Conjunctivae were clear. NECK: Supple without any masses. Trachea midline no deviation. No JVD, CARDIAC: Regular rhythm, regular rate. S1/S2 are heard. No murmurs gallops or rubs. LUNGS: Clear to auscultation bilaterally. No wheeze, rhonchi or rales. No use of accessory muscles on inspiration or expiration. ABDOMEN: Soft, nontender. Nondistended. Bowel sounds heard in all 4 quadrants. No organomegaly or masses. Negative rebound, negative guarding EXTREMITIES: No edema, pulses are equal bilaterally. No cyanosis or clubbing NEUROLOGY: Mood and affect appear appropriate. Cranial nerves II through XII grossly intact. Moving all extremities, speech is clear Hospital Course 22-year-old male with no chronic medical illnesses who originally presented to the emergency department because of acute onset of dizziness. Patient had workup done emergency department and found to have hyperglycemia glucose 637 with signs of diabetic ketoacidosis. Patient denied any history of diabetes. He did not have any polydipsia, polyphagia, polyuria or any weight changes or change in appetite. Patient was admitted to the ICU with IV insulin and tolerated treatment well and was successfully weaned off of IV insulin the same day. Patient was started on Levemir 10 units daily with low-dose sliding scale insulin. During his stay patient had adjustment of his insulin in which he receiving Levemir 10 units twice daily with medium dose sliding scale insulin. Patient's blood glucose monitoring has been doing quite well with this morning blood glucose monitor was 198. Upon admission patient did undergo laboratory studies for hemoglobin A1c which was 12.9. Patient will require long -term insulin management. Upon admission patient had critical care educator consult as well as dietary consult for new onset diabetes. Diabetic education was done at bedside by nursing staff. Patient does not have any insurance. Case management was consulted for patient care assistance, diabetic supplies, follow- up appointment with primary medical doctor, insulin medication. Patient was discharged once arrangements made by case management. Pt Condition on Discharge: Stable Discharge Disposition: Discharge Home Discharge Time: > 30 minutes Discharge Instructions DIET: Follow Instructions for: Diabetic Diet Activities you can perform: Regular-No Restrictions Follow up Referrals: PCP Follow-up - 1 Week with Jackelineyimi dominguez New Medications: Blood Glucose Monitoring W/Device (Glucocom Blood Glucose Mo W/Device) 1 Kit Kit KIT .XX DIRECTED for Blood Sugar Management, #1 Glucocom Test Strips (Glucocom Test Strips) 1 Elsi Elsi EA .XX DIRECTED for Blood Sugar Management, #1 Insulin Syringe/U-100/31G X 5/16" 1 ml (Insulin Syringe/U-100/31G X 5/16" 1 ml) 31 Gauge X 5/16" Mis EA .XX DIRECTED for Blood Sugar Management, #1 0 Refills Lancets (Lancets) 1 Mis Mis EA .XX DIRECTED for Blood Sugar Management, #1 0 Refills Parenteral Therapy Supplies (Sharpsafety Sharps Contai) 1 Mis Mis EA .XX DIRECTED, #1 0 Refills Insulin Aspart Inj (Novolog Inj) 100 Unit/Ml Inj 1 UNITS SQ ACHS SLIDING SCALE for Blood Sugar Management, #1 BOTTLE Insulin Detemir Inj (Levemir Inj) 1,000 unit/ 10 ML Vial 10 UNITS SQ BID for Blood Sugar Management for 30 Days, INJECTION Do not mix with any other Insulin. Obinna Esquivel Oct 10, 2017 10:59
[2017-10-10] MEDS: ENOXAPARIN SODIUM 40 MG/0.4 ML SYRINGE SQ SCH (12:00)
== END 2017-10-10 15:36 | disposition home or self-care (01) | DRG 639 ==
LOC: PHED 08:48 → PHICU 11:06
PROVIDERS: ADMIT Hospitalist; ATTEND Hospitalist
DX: E11.10 Type 2 diabetes mellitus with ketoacidosis without coma (principal); R42 Dizziness and giddiness; Z79.4 Long term (current) use of insulin
CPT/HCPCS: 71045; 80048; 80076; 81001; 82010; 82805; 82948; 83036; 83735; 84100; 84484; 85025; 86337; 87641; 93005; 96360; J1650; J1815; J1817; J3480; J7030; J7042